=== PATIENT | male | born 1970 | race Caucasian/White ===

== ENCOUNTER 2023-10-25 07:43 | Day surgery (SDC) | payer MEDICAID ==
[~2023-10-25] VITALS: Ht 167.6 cm; Wt 92.1 kg
[2023-10-25] MEDS ORDERED: MEPERIDINE 100 MG INJ. 100 MG/ML VIAL ONE (09:46)
[2023-10-25] MEDS ORDERED: MIDAZOLAM HCL 5 MG/5 ML VIAL ONE (09:46)
[2023-10-25 13:57] VITALS: BP_SYST 127; PULSE 67; RESP 18; TEMP 97.4; O2SAT 99
== END 2023-10-25 11:20 | disposition home or self-care (01) ==
LOC: SDS 07:43 → SMU 07:46 → SDS 11:20
PROVIDERS: ATTEND Internal Medicine Gastroenterology
DX: K62.5 Hemorrhage of anus and rectum (principal); K64.8 Other hemorrhoids; K21.9 Gastro-esophageal reflux disease without esophagitis; K44.9 Diaphragmatic hernia without obstruction or gangrene; K29.70 Gastritis, unspecified, without bleeding; K29.80 Duodenitis without bleeding; I10 Essential (primary) hypertension; E78.5 Hyperlipidemia, unspecified; Z98.890 Other specified postprocedural states; Z79.899 Other long term (current) drug therapy
CPT/HCPCS: 45378; 43239; 87081; 36415; 88305; 88312; 88313; 99153; 99152; G0378; J2250; J2175